=== PATIENT | male | born 1940 | race Caucasian/White ===

== ENCOUNTER 2017-06-06 07:34 | Observation (INO) ==
[2017-06-06] MEDS ORDERED: *HR* Heparin 10,000 UNIT/10 ML VIAL ONE (07:55)
[2017-06-06] MEDS ORDERED: 0.9 % Sodium Chloride 1,000 ML ONE (07:55)
[2017-06-06] MEDS ORDERED: Nitroglycerin 1,000 MCG/10 ML VIAL IV ONE (07:55)
[2017-06-06] MEDS ORDERED: 0.9 % Sodium Chloride 1,000 ML IVC SCH (08:00)
[2017-06-06] MEDS ORDERED: *HR* Midazolam HCl 2 MG/2 ML VIAL ONE (08:48)
[2017-06-06] MEDS ORDERED: *HR* FentaNYL (PF) 100 MCG/2 ML VIAL ONE (08:49)
--- NOTE | 2017-06-06 09:06 | History & Physical Report ---
Date of Encounter: 06/06/17 Time of Encounter: 08:45 24 Hour HP Update - Instructions Instructions: If the History and Physical is less than 30 days old and was completed prior to A.M. admission and or procedure and has NOT been updated on calendar day of procedure please complete this update prior to performing procedure. - Update Patient reports changes in Medical Condition: No Changes in examination, assessment, or condition: No Changes in Medication: No Preop tests/diagnostics Reviewed: Yes Surgery Remains Indicated: Yes Consent for Planned Operative Procedure(s) Verified: Yes - Pre-Operative Checklist Preoperative Checklist Indicated: No Prophylactic Antibiotic Ordered: No Home Medications Include Beta Chen: Yes Beta Chen Taken Today (Day of Surgery): Yes Beta Chen Taken Yesterday (Day Prior to Surgery): Yes Is VTE Prophylaxis Indicated?: NO
--- NOTE | 2017-06-06 09:06 | Pre-Sedation Evaluation ---
Pre-sedation evaluation - Pre-sedation checklist Date of procedure: 06/06/17 Procedure: [facility] Recent Vitals: Last Vital Signs Temp 97.8 F 06/06/17 08:08 Pulse 61 06/06/17 08:08 Resp 16 06/06/17 08:08 BP 127/74 06/06/17 08:08 Pulse Ox 97 06/06/17 08:08 H&P (including ROS) documented in medical record: Yes Previous reaction to sedatives/anesthetics: No Dietary Status: NPO after Midnight Airway Assessment: Patient can open mouth completely, TMJ function normal, Micrognathia (under-bite, receding chin) absent, Neck with adequate range of motion Dentition: No loose teeth or bridges Possible difficult airway: No ASA Classification *see protocol: CLASS II-Mild systemic disease Plan of Care: Pt appropriate candidate for procedure/moderate/conscious sedation , Risks/benefits of procedure/sedation discussed w/ patient/family
[2017-06-06] MEDS ORDERED: Nitroglycerin 0.4 MG TAB.SUBL SL PRN (10:10)
[2017-06-06] MEDS ORDERED: Acetaminophen 325 MG TABLET PO PRN (10:10)
[2017-06-06] MEDS ORDERED: *HR* Atropine Sulfate 1 MG/10 ML SYRINGE ONE (12:35)
--- NOTE | 2017-06-06 15:36 | Invasive Diagnostic Lab ---
Name: Link Mccarty Date of Study: 06/06/2017 Date: 1940 Ht: 165.1 cm /65.0 in Medical Record#: [id number] Age: 76 Wt: 93.2 kg / 205.47 lb Account/Order#: [id number] Gender: Male BSA: 2. Order #: [id number] Fluoro Dose: 566 mGy BMI: 34.19 Procedure Physician: Dominique Spain MD, [facility] Referring MD: Referring MD: Procedures Performed: LEFT HEART CATH Stent w/ PTCA Single Major Vessel Indications: Unstable Angina Impressions: Double vessel coronary artery disease. OPERATIONS INTERN of proximal RCA. The left ventricle is normal and has normal contractility EF 65% Patient had successful PTCA/Drug-Eluting Stent placement in the proximal LAD. Recommendations: Optimal medical therapy of patient's disease. Aggressive risk factor modification. Patient being referred for cardiac rehab. History/Risk Factors: CP SOB asthma emphysema ulcers stroke COPD Hypertension Dyslipidemia Previous PCI Procedure Access obtained in the Femoral artery by percutaneous puncture Patient had successful PTCA/Drug-Eluting Stent placement in the proximal LAD. Complications: None Contrast: Isovue 125ml Closure Device: Manual Compression Hemodynamics: Pressures Site Systolic/ A Wave Diastolic/ V Wave End Diastolic/ Mean HR LV 112 8 10 56 LV 105 6 10 56 AO 104 -2 72 54 LV Ventriculography Ejection Method: LV Gram Ejection Fraction: 65% Wall Motion: OZUNA Anterobasal Normal Anterolateral Normal Apical: Normal Inferoapical Normal Inferobasal Normal Coronary Dominance: Co-dominant Lesion Findings/Interventions * Left Main Coronary Artery The LMCA is angiographically free of disease. * Left Anterior Descending There is a 16 mm long, 99% stenosis in the Proximal LAD at distal edge of previous ostial/prox LAD stent. The lesion has a DUONG flow of 3 and has no thrombus present. An intervention was performed on the Proximal LAD with a final stenosis of 0%. There were no lesion complications. The final DUONG flow was 3. There is a 15% instent restenosis in the Ostial LAD. There is 15% instent restenosis in the mid LAD. * Circumflex There is a 30% stenosis in the Proximal Circumflex. There is a 30% stenosis in the Mid Circumflex. * Ramus There is a 15% stenosis in the Ramus. * Right Coronary Artery There is a 100% stenosis in the Proximal RCA- OPERATIONS INTERN. Distal RCA fills via L to R collaterals. Interventional Device(s) Vessel Segment Type Name Diameter (mm) Length (mm) Proximal LAD Balloon Emerge Monorail 2.25 12 Proximal LAD Drug Eluting Stent Synergy 3 16 Updated by Sherly Del Rio, RT (R) on 06/06/2017 10:03:58 AM Dominique Spain MD, FACC electronically signed on 06/06/2017 3:31:04 PM with status of Final
--- NOTE | 2017-06-06 16:10 | Electrocardiograph Report ---
[address] [address] Test Date: 2017-06-06 Pat Name: Link Mccarty Department: 106 Room: 2N12 Gender: M Poll Clerk: : 1940 Requested By: Dominique Spain Order Number: [id number] Reading MD: Dominique Spain Measurements Intervals [place] Rate: 58 P: 20 [place]: 159 QRS: -11 QRSD: 93 T: 28 QT: 416 QTc: 412 Interpretive Statements SINUS BRADYCARDIA Electronically Signed On 06-06-2017 16:08:38 EDT by Dominique Spain
[2017-06-07 04:11] LABS: Basophils # 0.1 K/mcL (0.0-0.2); Basophils % 0.4 %; Eosinophils # 0.5 K/mcL (0.0-0.6); Eosinophils % 4.1 %; Hematocrit 40.5 % (37.5-50.1); Hemoglobin 13.3 g/dL (12.9-16.9); Immature Granulocytes % 1.9 % (0-4); Lymphocytes % 16.6 %; Mean Corpuscular HGB Conc 32.8 g/dL (31.6-35.5); Mean Corpuscular Hemoglobin 31.4 pg (28.0-33.3); Mean Corpuscular Volume 95.7 fL (83.0-100.0); Mean Platelet Volume 10.4 fL (9.4-12.4); Monocytes # 0.6 K/mcL (0.0-1.3); Monocytes % 4.8 %; Neutrophils # 8.9 K/mcL (1.6-8.9); Platelet Count 327 K/mcL (140-400); Red Blood Count 4.23 M/mcL (4.19-5.50); Red Cell Distribution Width 12.2 % (11.5-14.5); Segmented Neutrophils % 72.2 %
[2017-06-07 04:23] LABS: BUN/Creatinine Ratio 10 (6-26); Blood Urea Nitrogen 12 mg/dL (8-26); Calcium 9.2 mg/dL (8.6-10.8); Carbon Dioxide 27 mEq/L (19-29); Chloride 101 mEq/L (98-109); Glucose 108 mg/dL (70-99); Osmolality,Calculated 282 (280-300); Sodium 136 mEq/L (136-145); eGFR For African Americans > 60 (> 60); eGFR For Non-African Americans 58 (> 60)
[2017-06-07 04:28] LABS: Potassium 3.6 mEq/L (3.5-4.5)
[2017-06-07 07:52] VITALS: BP 137/76
--- NOTE | 2017-06-07 08:49 | Discharge Summary ---
Date of Encounter: 06/07/17 Time of Encounter: 08:30 - Discharge Diagnosis (1) CAD (coronary artery disease) Priority: Primary Status: Chronic Comments: S/p [facility] with PTCA/DORA to prox LAD 99% lesion. Qualifiers: Coronary Disease-Associated Artery/Lesion type: [place] artery [place] vs. transplanted heart: [place] heart Associated angina: without angina Qualified Code(s): I25.10 - Atherosclerotic heart disease of [place] coronary artery without angina pectoris - Discharge Medications Prescriptions: Nitroglycerin 0.4 mg SL Q5MIN PRN #30 PRN Reason: Chest Pain Home Medications: Aspirin [Lo-Dose Aspirin EC] 81 mg PO DAILY 10/10/16 [History] Clopidogrel [Plavix] 75 mg PO DAILY 10/10/16 [History] Metoprolol [Lopressor] 25 mg PO BID 10/10/16 [History] Triamterene/HCTZ 37.5/25mg [Dyazide] 1 each PO DAILY 10/10/16 [History] Cholecalciferol (D-3) [Vitamin D] 2,000 unit PO DAILY 06/06/17 [History] Cyanocobalamin (Vitamin B-12) [Vitamin B12] 1,000 mcg PO DAILY 06/06/17 [History ] Fenofibrate 160 mg PO DAILY 06/06/17 [History] Ketoprofen 75 mg PO BID PRN 06/06/17 [History] Pantoprazole Sodium [Protonix] 40 mg PO DAILY 06/06/17 [History] Pravastatin Sodium [Pravachol] 40 mg PO DAILY 06/06/17 [History] Sildenafil Citrate [Viagra] 50 - 100 mg PO DAILY PRN 06/06/17 [History] Nitroglycerin 0.4 mg SL Q5MIN PRN #30 06/07/17 [Rx] Allergies/Adverse Reactions: Allergies No Known Allergies Allergy (Verified 10/10/16 07:35) Procedures/tests Complete & Pending: Procedures Performed prior 72 hours Category Date Time Status CL Cardiac Catheterization [CL] Routine [employer] Supervisor 06/06/17 07:47 Completed ECG 12 lead ECG [ECG] Routine Y 06/06/17 07:52 Completed ECG 12 lead ECG [ECG] Stat Y 06/06/17 10:09 Completed Date of admission: 06/06/17 12:11 Primary care physician: Hong Levy MD Consults: 06/06/17 10:11 Consult to Cardiac Rehabilitation-Phase1 [CONS] Routine Comment: Reason for Consult: CAD s/p PCI Call Completed: Yes Discharging clinician: Rajesh Christian Anticipated date of discharge: 06/07/17 - Patient Status Disposition: Home, Self-Care Condition: Good Functional capacity at discharge: independent ambulation Overall status at discharge: patient is progressing back to baseline - Discharge Instructions Follow Up With: Shea Wells CNP [Advanced Practice Nurse] - 06/12/17 11:00 am Pedro Ramirez MD [Partnered Physician] - 07/08/17 9:30 am Additional Instructions: RISK FACTORS: STOP SMOKING: If you smoke, STOP. Smoking or tobacco use significantly increases your risk of heart disease because nicotine causes the arteries to narrow or constrict. It also causes fats to stick to the artery. Your chances of having a heart attack are greatly increased if you continue to smoke. For more information, call the education line for smoking cessation 4-686-WIRQWUA EAT A LOW FAT/CHOLESTEROL/SODIUM DIET: This diet may help reduce your chances of having a heart attack. LIFTING: Avoid lifting anything more than 10 pounds for 5-7 days Prior to straining, laughing, sneezing and/or coughing, apply manual pressure directly over insertion site. ACTIVITY: You may walk or climb stairs as tolerated You can resume sexual activity as tolerated In general, you are encouraged to engage in a minimum of 30 minutes or more of moderate intensity physical activity, such as brisk walking, daily or at least 3 -4 times weekly BATHING Do not submerge the site into water (bath tub, hot tub, swimming pool) for 1 week. This can be a source for infection into the blood stream. You may shower after 24 hours SITE CARE: After 24 hours, you may remove the dressing and leave the site open to air. Keep the site clean and dry. Clean gently and pat dry. You can expect bruising and tenderness that gradually resolve within a week or two. Return to work as instructed per your physician Resume driving as instructed per physician Keep all scheduled follow up appointments Resume medications as instructed IMPORTANT: If prescribed a Platelet Aggregation Inhibitor such as, Plavix, Brilinta or Effient: Duration of therapy is minimum one year These medications are often used in combination with Aspirin in prevention of future heart attacks Never discontinue unless consult with your Limo Driver STROKE (CVA) Risk factors for a stroke are: Age, cigarette smoking, diabetes, excessive alcohol consumption, family history, high blood pressure, overweight, physical inactivity, prior stroke, heart attack, diagnosis of carotid artery stenosis or other artery disease. Warning signs: Sudden numbness or weakness of the face, arm or leg; especially on one side of the body, sudden confusion, trouble speaking or understanding, sudden trouble seeing in one or both eyes, sudden trouble walking, dizziness, loss of balance or coordination, sudden severe headache with no cause. Call 911 or go to the Emergency Room. CONGESTIVE HEART FAILURE: If you have been diagnosed with Congestive Heart Failure (CHF) and your symptoms return, make an appointment with your physician Weigh yourself daily. Notify your physician if you have a weight gain of two or more pounds in one day or five or more pounds in one week. If you experience any difficulty breathing, please call 911 BLEEDING: Although the risk of bleeding is minimal, it can happen. If you have any bleeding from the site, apply firm pressure above the puncture site for 10-15 minutes. If the bleeding does not stop, continue manual pressure and call 911 Contact your physician if: You develop a fever greater than 101 degrees Fahrenheit Your site becomes reddened or has any drainage You have an increase in pain or burning at the site or if a large knot forms at the site. If you experience chest pain, shortness of breath, dizziness, or extreme tiredness, stop the activity and rest. Please notify your physicians office if you experience any of these symptoms and they are not relieved by rest please call 911! - Diet and Activity Diet: advance to your usual diet, low fat, low cholesterol - Hospital Course Hospital course: Mr. Mccarty is a 76 year old male with a known history of CAD presented for outpatient catheterization with Dr. Dominique Spain June 06, 2017 for increased angina symptoms. Patient underwent PTCA/drug-eluting stent to proximal LAD 99% lesion. 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 Patient clinically stable overnight and prepping for discharge home today. - Time Spent with Patient Total time spent providing and/or coordinating discharge services: Less than 30 minutes Physical Examination Vital Signs, Last 4 Hours Temp Pulse Resp BP Pulse Ox 06/07/17 07:51 98.0 F 69 18 137/76 96 06/07/17 04:41 59 06/07/17 04:38 97.9 F 62 18 118/66 96 General: Conversant, No Apparent Distress HEENT: Atraumatic, Normocephaly, Mucus Membranes Moist Neck: No JVD, Normal carotid pulses Cardiac: Reg Rate and Rhythm, Normal S1 and S2, No Murmur Lungs: Normal Breath Sounds, No Wheeze, Rales, Rhonchi Neuro: Alert and responsive, No focal deficits noted Abdomen: Soft, Non-Tender Skin: No rashes noted on visualized skin, Other (Right groin site dry and intact , no hematoma, very mild ecchymosis, no bleeding, right dorsalis pedis and posterior tibial pulses 2+ palpable) Musculoskeletal: No Chest Wall Tenderness Extremities: No Clubbing, No Cyanosis, No Edema, Normal Pulses
[2017-06-07] MEDS ORDERED: Cholecalciferol (D-3) 1,000 UNIT TABLET PO SCH (09:00)
[2017-06-07] MEDS ORDERED: Fenofibrate 54 MG TABLET PO SCH (09:00)
[2017-06-07] MEDS ORDERED: Cyanocobalamin (B-12) 1,000 MCG TABLET PO SCH (09:00)
[2017-06-07] MEDS ORDERED: Aspirin Enteric Coated 81 MG Tablet PO SCH (09:00)
--- NOTE | 2017-06-08 18:05 | Electrocardiograph Report ---
[place] [address] Test Date: 2017-06-06 Pat Name: Link Mccarty Department: 110 Room: 2N12 Gender: M Welding Specialist: MRR : 1940 Requested By: Dominique Spain Order Number: [id number] Reading MD: Tacho Aguilera MD Measurements Intervals [place] Rate: 64 P: 36 [place]: 157 QRS: -19 QRSD: 90 T: 6 QT: 405 QTc: 414 Interpretive Statements SINUS RHYTHM BASELINE ARTIFACT Electronically Signed On 06-08-2017 18:03:59 EDT by Tacho Aguilera MD
--- NOTE | 2017-06-10 13:28 | Invasive Diagnostic Lab Proc ---
Name: Link Mccarty Date of Study: 06/06/2017 Date: 1940 Ht: 65.0in Medical Record#: [id number] Age: 76 Wt: 205.47lb Gender: Male BSA: 2. Order #: [id number] BMI: 34.19 Physicians Procedure Physician: Dominique Spain MD, FACC Referring MD: Referring MD: Staff Name Position Time In Blanca Sheldon RT (R) Pre-Op Nurse 08:04 AM Cristin Denis RN Pre-Op Nurse 08:04 AM Sherly Acevedo RT (R) Scrub 09:07 AM Loretta Finley RN Monitor 09:07 AM Adrian Neves RN Veterans Service Officer 09:08 AM Kemal Zelaya RN Veterans Service Officer 09:08 AM Kemal Zelaya RN Monitor 09:08 AM Indications Indication Unstable Angina Procedures Performed Procedure L HRT ARTERY/VENTRICLE ANGIO PRQ CARD DORA STENT W/ANGIO 1 VSL Pre-Procedure Checklist Informed consent is complete signed and on chart. H&P is on chart. ID band is on and ID verified with patient. Patient NPO for procedure The procedure was described for the patient and questions were answered. Blood Pressure: 127/74 ECG is on chart. Rhythm: NSR Plan of Care Patient will tolerate the procedure without complications. Adequate level of comfort will be maintained. Hemodynamics will remain stable Patient will recover from procedure without complications. Respiratory function will be maintained. Cardiac rhythm will remain stable. Patient temperature will be maintained. Patient and/or family have verbalized understanding of the procedure. Patient Education Chief Complaint/Reason for Test: Cardiac Cath Developmental Category: Geriatric (65+ years) Developmentally Appropriate for Age: Yes Learning Barriers: None Education Needs: Procedure Education Method: Verbal Information Taught: Cardiac Cath Educational Evaluation: Able to repeat information Intravenous Access Time IV Size Location DC'd Fluid/Drip Rate Units RN 08:03 AM Started with 20g 1 1/4" Lt Antecubital 0.9NaCl 100 ml/hr Allergies NO KNOWN DRUG ALLERGIES No Known Allergies Vital Signs Time BP (mmHg) HR (bpm) O2 Sat. RR (bpm) LOC 08:01 AM 127 / 74 61 97 % 16 5 = Fully awake and oriented or at pre-proc level 09:12 AM / % 4 = Oriented but drowsy 09:07 AM 153 / 84 59 97 % 12 09:12 AM 112 / 69 61 90 % 32 09:17 AM 127 / 75 54 97 % 13 09:22 AM 134 / 74 67 97 % 11 09:27 AM 133 / 68 56 98 % 16 09:32 AM 131 / 69 58 99 % 12 09:37 AM 140 / 71 56 98 % 11 09:42 AM 119 / 69 59 97 % 13 09:12 AM / % 09:27 AM / % 10:04 AM 128 / 72 59 97 % 16 5 = Fully awake and oriented or at pre-proc level 10:28 AM 126 / 76 57 96 % 17 5 = Fully awake and oriented or at pre-proc level 10:47 AM 115 / 64 58 97 % 13 5 = Fully awake and oriented or at pre-proc level 11:05 AM 115 / 95 55 96 % 13 5 = Fully awake and oriented or at pre-proc level 11:16 AM 115 / 90 55 96 % 16 5 = Fully awake and oriented or at pre-proc level 11:33 AM 122 / 73 53 96 % 16 5 = Fully awake and oriented or at pre-proc level 11:54 AM 126 / 78 55 97 % 16 5 = Fully awake and oriented or at pre-proc level 12:03 PM 115 / 64 51 97 % 16 5 = Fully awake and oriented or at pre-proc level Procedural Medications Time Medication Dose Units Method Given By 09:09 AM Oxygen 2 L/min nasal cannula Loretta Finley RN 09:09 AM Versed 2 mg Intravenous Adrian Neves RN 09:09 AM Fentanyl 50 mcg Intravenous Adrian Neves RN 09:16 AM Lidocaine 2% 20 ml Subcutaneous Dominique Spain MD, FACC 09:31 AM mg 09:31 AM Angiomax 0.75mg/kg bolus: 13.5 ml Intravenous Loretta Finley RN 09:32 AM Angiomax 1.75mg/kg/hr: 31.5 ml Intravenous Loretta Finley RN 09:40 AM Nitroglycerin 200 mcg Intracoronary Dominique Spain MD, FACC 09:44 AM Plavix 600 mg Orally Adrian Neves RN ASA Classification: CLASS II- Mild systemic disease (i.e. well-controlled diabetes, hypertension, asthma, cigarette smoking) Merlyn Score Preprocedure Postprocedure Activity 2- Moves 4 extremities sustained head lift Activity 2- Moves 4 extremities sustained head lift Circulation 2- SBP +/= 20 points of pre-anesthetic level Circulation 2- SBP +/= 20 points of pre-anesthetic level Consciousness 2- Awake and alert oriented x 3 Consciousness 2- Awake and alert oriented x 3 O2 Saturation 2- Able to maintain O2 satruation of 92% on room air O2 Saturation 2- Able to maintain O2 satruation of 92% on room air Respiratory 2- Able to deep breathe and cough well Respiratory 2- Able to deep breathe and cough well Total Score 10 Total Score 10 Contrast Agent: Isovue Diagnostic Contrast: 125 ml Total Contrast: 125 ml Fluoro Dose: 566 mGy Procedure Log Time Note Enter By 08:04 AM Evidence of mental, physical, or emotional abuse? No [email or web address] 08:05 AM Risk for fall? Yes, Medications (change in amt./frequency,newly prescribed,potential combinations) [email or web address] 08:05 AM Does patient have suicidal ideations? No [email or web address] 08:43 AM CathStat 09:06 AM Vitals capture started with the following parameters, Patient=Adult, Interval=5 min, Initial Ejsgtcov=283 mmHg, Deflation Rate=5 mmHg, Cuff placed on Left Arm 09:07 AM HR=59 bpm, UVAD=373/84 mmhg, SpO2=97.0 %, Resp=12 B/min 09:07 AM Pt arrived to [facility] 2 at 09:07 tsites 09:07 AM Sherly Acevedo RT (R) Position: Scrub Time in: 09:07 tsites 09:08 AM Loretta Finley RN Position: Monitor Time in: :07 tsites 09:08 AM Adrian Neves RN Position: Veterans Service Officer Time in: :08 tsites 09:08 AM Kemal Zelaya RN Position: Monitor Time in: 09:08 tsites 09:08 AM Patient charges- Angio tray pack, Navilyst 3mm J, Pulse Oximetry and ACIST tubing and transducer tsites 09:08 AM IV Supplies used: J loop Angio Cath. tsites 09:08 AM Case Delayed No tsites 09:09 AM Physician arrived 09:08 tsites 09:09 AM Meet and greet completed tsites 09:09 AM Sign in performed according to hospital policy. tsites 09:09 AM Procedure start 09:09 tsites 09:09 AM Hair removed from procedure site in holding area using clippers. Right wrist and right groin prepped with Chloraprep by Adrian Neves RN, safety strap applied then patient was draped. Skin intact. tsites 09:09 AM Time: 09:09 Oxygen on at 2 L/min per nasal cannula by Loretta Finley RN tsites 09: AM Time: 09:09 Versed 2 mg Intravenous Given by Adrian Neves RN [facility] 09: AM Time: 09:09 Fentanyl 50 mcg Intravenous Given by Adrian Neves RN [facility] 09:12 AM Time: 09:12 Patient comfortable and pain free: Yes tsites 09:12 AM Time: 09:12LOC: 4 = Oriented but drowsy [facility] 09:12 AM Clinical Presentation: Stable angina tsites 09:12 AM HR=61 bpm, ECFW=986/69 mmhg, SpO2=90 %, Resp=32 B/min 09:16 AM Time out performed according to hospital policy [facility] 09:16 AM Pressure channel 1 zeroed. 09:17 AM HR=54 bpm, FVZH=037/75 mmhg, SpO2=97.0 %, Resp=13 B/min 09:18 AM Time: 09:16 20 ml Lidocaine 2% to right groin Subcutaneous Given by Dominique Spain MD, [facility] 09:18 AM Access obtained by percutaneous puncture. 5Fr 10cm Terumo Strawberry sheath placed in Femoral artery. [id number] tsites 09:19 AM 5Fr FL 4 catheter inserted over the wire [facility] 09:19 AM 0.035 145cm Navilyst 3mmJ wire [id number] tsites 09:19 AM LCA angiography performed in multiple views. tsites 09:22 AM HR=67 bpm, BUNS=554/74 mmhg, SpO2=97 %, Resp=11 B/min 09:22 AM Catheter removed tsites :23 AM 5Fr FR 4 catheter inserted over the wire [facility] 09:23 AM RCA angiography performed in SLOVEN[place]. tsites 09:24 AM Catheter removed tsites 09:24 AM 5Fr Pigtail catheter inserted over the wire [facility] 09:25 AM Pressure channel 1 zeroed. 09:25 AM Recorded Pressure: LV, HR=56, Condition=Condition 1 (Left Ventricle) LV 112/8/10 09:25 AM Catheter selectively placed in left ventricle tsites 09:25 AM Recorded Pressure: LV, Ao, HR=55, Condition=Condition 1 (Left Ventricle) LV 105/6/10, (Aorta) Ao 104/-2/72 09:26 AM Bolus angiogram of Ventricle complete: 8 ml/sec for a total of 24 mls tsites 09:27 AM HR=56 bpm, CTZQ=568/68 mmhg, SpO2=98.0 %, Resp=16 B/min 09:27 AM Time: 09:12LOC: tsites 09:27 AM Time: 09:12 Patient comfortable and pain free: tsites 09:27 AM Catheter removed tsites 09:28 AM PCI Status Elective tsites 09:28 AM PCI Indication: PCI for high risk Non-STEMI or unstable angina tsites 09:28 AM PCI lesion in Proximal LAD. tsites 09:28 AM Sheath exchanged for a 6 Fr 11 cm Cordis Estefany sheath [id number] tsites 09:29 AM 6Fr XB LAD 3.5 Cordis guide catheter was used to cannulate the PCI vessel successfully. reused? No tsites 09:29 AM .014 Prowater 180cm guide wire across target lesion- successful. reused? No tsites 09:29 AM Inflation device was opened. tsites 09:30 AM 2.25 mm x 12 mm Emerge Monorail balloon across target lesion- successful. reused? No tsites 09:31 AM Time: 09:31 mg Given by Schultz pump tsites 09:32 AM HR=58 bpm, AJJW=959/69 mmhg, SpO2=99 %, Resp=12 B/min 09:32 AM Time: 09:31 Angiomax 0.75mg/kg bolus: 13.5 ml Intravenous Given by Loretta Finley RN Schultz pump tsites 09:33 AM Time: 09:32 Angiomax 1.75mg/kg/hr: 31.5 ml Intravenous Given by Loretta Finley RN Schultz pump tsites 09:36 AM Balloon inflated @ 14 salma for 20 seconds tsites 09:36 AM Balloon catheter removed intact. tsites 09:37 AM HR=56 bpm, RRQV=607/71 mmhg, SpO2=98 %, Resp=11 B/min 09:37 AM 3.0mm x 16mm Synergy drug-eluting stent across target lesion- successful Lot #[id number] tsites 09:39 AM Stent deployed @ 15 salma for 30 seconds tsites 09:40 AM Stent delivery system removed intact. tsites 09:40 AM Time: 09:40 Nitroglycerin 200 mcg Intracoronary Given by Dominique Spain MD, FACC tsites 09:41 AM Guide wire removed intact. tsites 09:42 AM Guide catheter removed intact. tsites 09:42 AM HR=59 bpm, GHDC=708/69 mmhg, SpO2=97 %, Resp=13 B/min 09:42 AM Time: 09:27 Patient comfortable and pain free: tsites 09:42 AM Time: 09:27LOC: tsites 09:43 AM Bolus angiogram of right Femoral complete: 2 ml/sec for a total of 4 mls tsites 09:44 AM Time: 09:44 Plavix 600 mg Orally Given by Adrian Neves RN tsites 09:45 AM Procedure completed at 09:45 tsites 09:46 AM Sign out completed: Radiation Dose 566 mGy Fluoro Time: 6.3 Isovue 370 - 500ml contrast 125 ml given by Dominique Spain MD, [facility]. Complications: NoneCardiac Rehab Consult needed: YesConfirmed administered medications: Yes tsites 09:46 AM Isovue 370 - 500ml,1 Bottle(s) used. tsites 09:47 AM Sheath left in place to be pulled on floor/holding areaV+Pad tsites 09:47 AM Post ECG NSR tsites 09:48 AM Post Blood Pressure 119/69 tsites 09:48 AM 09:48 Post Pulses Bilateral DP & PT 1+ tsites 09:48 AM Information taught Cardiac Cath and PCI tsites 09:48 AM Education needs Procedure, Plan of Care, and Responsibilities of Patient in Care tsites 09:49 AM Learning barriers :None tsites 09:49 AM Education Methods Verbal tsites 09:49 AM Education evaluation Able to repeat information tsites 09:49 AM Site status No bleeding/hematoma - Rt Groin as reported by Sherly Acevedo RT (R) at 09:49 tsites 09:49 AM Opsite applied tsites 09:50 AM Report given to blanca AYON Pt taken to Holding room Room #1. 09:50 tsites 09:50 AM Plavix, Effient or Brilinta given Yes tsites 09:50 AM Delay to floor Bed availability tsites 09:50 AM Patient out of room: 09:50 tsites 09:51 AM Family placed in consult room. tsites 09:52 AM Coronary Dominance: Co-dominant tsites 09:52 AM Lesion found in Proximal RCA. Pre Stenosis: 100 Pre DUONG Flow: tsites 09:52 AM Lesion found in Proximal LAD. Pre Stenosis: 99 Pre DUONG Flow: tsites 09:53 AM Lesion found in Proximal LAD. Pre Stenosis: 15 Pre DUONG Flow: tsites 09:53 AM Lesion found in Proximal LAD. Pre Stenosis: 15 Pre DUONG Flow: tsites 09:53 AM Lesion found in Proximal Circumflex. Pre Stenosis: 30 Pre DUONG Flow: tsites 09:54 AM Lesion found in Mid Circumflex. Pre Stenosis: 30 Pre DUONG Flow: tsites 09:54 AM Lesion found in Ramus. Pre Stenosis: 15 Pre DUONG Flow: tsites 09:54 AM Proximal Left Anterior Descending Coronary Artery with 99% stenosis. If graft is supplying this territory, 0 % stenosis. tsites 09:54 AM Circumflex, Obtuse Marginal, Left Posterior Descending, and Left Posterolateral Coronary Arteries with 30 % stenosis. If graft is supplying this area, 0 % stenosis tsites 09:54 AM Right Coronary, Right Posterior Descending Arteries with Right Posterolateral and Acute Marginal branches with 100 % stenosis. If graft is supplying this area, 0 % stenosis tsites 09:54 AM Ramus with 15% stenosis. If graft is supplying this area, 0 % stenosis tsites 10:03 AM received patient to holding area. monitors applied. [email or web address] Complications Complication None Hemodynamics Pressures Site Systolic/A Wave Diastolic/V Wave Mean LV 112 8 10 LV 105 6 10 AO 104 -2 72 Post Procedure Information Blood Pressure: 119/69 mmHg Rhythm: NSR Post procedural instructions were given Closure Device Time Device Success/Fail 06/06/2017 9:51:00 AM Manual Compression Site Checks Time Location Status Staff Sheath In? Note 09:49 AM Rt Groin No bleeding/hematoma Sherly Acevedo RT (R) 10:04 AM Rt Groin No bleeding/ No Hematoma India Hutchison RN Yes 10:27 AM Rt Groin No bleeding/ No Hematoma Blanca Sheldon RT (R) Yes 10:47 AM Rt Groin No bleeding/ No Hematoma Blanca Sheldon RT (R) Yes 11:04 AM Rt Groin No bleeding/ No Hematoma Pilar Sheldonlee RT (R) Yes 11:16 AM Rt Groin No bleeding/ No Hematoma Cristin Denis RN Yes 11:32 AM Rt Groin No bleeding/ No Hematoma Kemal Zelaya RN 11:53 AM Rt Groin No bleeding/ No Hematoma Kemal Zelaya RN 12:03 PM Rt Groin No bleeding/ No Hematoma Kemal Zelaya RN Pulses Time Site Pre-Procedure Post-Procedure Note 06/06/2017 8:01:00 AM Bilateral DP 2+ 06/06/2017 8:01:00 AM Bilateral PT 1+ 06/06/2017 8:01:00 AM Bilateral radial 2+ 9:48:00 AM Bilateral DP & PT 106/06/2017 10:04:00 AM Bilateral DP & PT 106/06/2017 10:28:00 AM Bilateral DP & PT 1+ 06/06/2017 10:47:00 AM Bilateral DP & PT 106/06/2017 11:04:00 AM Bilateral DP & PT 1+ 06/06/2017 11:16:00 AM Bilateral DP & PT 1+ 06/06/2017 11:33:00 AM Bilateral DP & PT 1+ 06/06/2017 11:54:00 AM Bilateral DP & PT 106/06/2017 12:03:00 PM Bilateral DP & PT 1+ Updated by Ronan Levy RN on 06/10/2017 1:17:59 PM Cristin Denis RN electronically signed on 06/10/2017 1:20:47 PM with status of Final
== END 2017-06-07 10:43 | disposition home or self-care (01) ==
LOC: 2NNU 07:34 → INVDIALAB 07:34
PROVIDERS: ADMIT Internal Medicine Interventional Cardiology; ATTEND Internal Medicine Interventional Cardiology

== ENCOUNTER 2018-02-07 10:58 | Observation (INO) ==
[2018-02-07] MEDS: 0.9 % Sodium Chloride 1,000 ML IVC SCH ×2 (11:52→20:57)
--- NOTE | 2018-02-07 12:02 | Emergency Department Note ---
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 Patient says that the symptoms are only present when he moves. Patient notices them worse when he turns his head [id number] quickly or goes from lying to sitting or sitting to standing. Patient also notices when she leans forward that the symptoms are worse. Denies chest pain shortness breath headache vision changes patient denies any new symptoms. He does have a history of vertigo. Onset (ago): hour(s) Radiation: non-radiation Pain Scale: 0 Consistency: intermittent Improves with: rest Worsens with: movement Treatments Prior to Arrival: none - Related Data Home Medications Medication Instructions Recorded Confirmed Aspirin [Lo-Dose Aspirin EC] 81 mg PO DAILY 10/10/16 11/21/17 Clopidogrel [Plavix] 75 mg PO DAILY 10/10/16 11/21/17 Metoprolol [Lopressor] 25 mg PO BID 10/10/16 11/21/17 Triamterene/HCTZ 37.5/25mg 1 each PO DAILY 10/10/16 11/21/17 [Dyazide] Cholecalciferol (D-3) [Vitamin D] 2,000 unit PO DAILY 06/06/17 11/21/17 Cyanocobalamin (Vitamin B-12) 1,000 mcg PO DAILY 06/06/17 11/21/17 [Vitamin B12] Fenofibrate 160 mg PO DAILY 06/06/17 11/21/17 Pantoprazole Sodium [Protonix] 40 mg PO DAILY 06/06/17 11/21/17 Pravastatin Sodium [Pravachol] 40 mg PO DAILY 06/06/17 11/21/17 Previous Rx's Medication Instructions Recorded Nitroglycerin 0.4 mg SL Q5MIN PRN #30 06/07/17 Famotidine [Pepcid] 20 mg PO BID #30 tablet 11/21/17 Allergies Allergy/AdvReac Type Severity Reaction Status Date / Time No Known Allergies Allergy Verified 10/10/16 07:35 All systems ED: reviewed and negative except as stated. Review of Systems: As Per HPI Constitutional: Denies: fever, chills Cardiovascular: Denies: chest pain, palpitations, dyspnea on exertion, orthopnea Respiratory: Denies: cough, dyspnea, wheezes, hemoptysis Gastrointestinal: Denies: nausea, vomiting, diarrhea Genitourinary: Denies: urgency, dysuria, frequency Musculoskeletal: Denies: back pain, neck pain Neurological: Reports: vertigo. Denies: headache Past Medical History - Past Medical History Attestation: Yes The following information was validated with the patient. Source: patient Medical history: Reports: arthritis, asthma, COPD, coronary artery disease, CVA , GERD, hyperlipidemia, hypertension Surgical history: Reports: angioplasty/stent, orthopedic, other Psychiatric history: Reports: no psych history - Social History Smoking Status: Former smoker Smokeless Tobacco Status: No Alcohol use: Reports: none Drug use: Reports: none Physical Exam - General Limitations: no limitations General appearance: alert - ENT ENT exam: normal exam, normal oropharynx, mucous membranes moist - Neck Neck exam: Present: normal inspection, full ROM, trachea midline. Absent: tenderness - Chest Chest inspection: Present: normal inspection, symmetric chest wall rise - Respiratory Respiratory exam: Present: normal lung sounds bilaterally - Cardiovascular Cardiovascular exam: Present: regular rate, normal rhythm, normal heart sounds - Abdominal Exam Abdominal exam: Present: soft, Non-Tender. Absent: tenderness, distention, guarding, rebound, rigidity - Extremities Exam Extremities exam: Present: normal inspection, full ROM, normal capillary refill. Absent: tenderness, pedal edema - Back Exam Back exam: Present: normal inspection, full ROM - Neurological Exam Neurological exam: Present: alert, oriented X3, CN II-XII intact, normal gait. Absent: motor sensory deficit - Psychiatric Psychiatric exam: Present: normal affect, normal mood - Skin Skin exam: Present: warm, dry, intact, normal color Course Course Narrative: Patient seen and examined the time of arrival. See history of present illness. 77-year-old male presents to the emergency room with approximately 18 hours with of intermittent dizziness. Patient noticed the symptoms yesterday afternoon. He does have a remote history of dizziness and vertigo. He has not had symptoms of this in quite a long time. He denies any recent illnesses trauma injury infections. Currently denying chest pain shortness of breath headache vision changes nausea vomiting or diarrhea. His only complaint is positional related dizziness and vertigo. Patient's only has symptoms when he leans forward or rotates his head quickly. He has no visible signs of ataxia. His neurologic evaluation is completely benign. He has no visible cerebellar function deficits or issues at this time. Because of the patient's symptoms is approximately 18 hours since the onset of the presentation. CT imaging of the head with contrast looking at angiography of the head and neck will be completed along with plain film of the head. Patient does not have any visible signs of neurologic deficit facial asymmetry. Cranial nerves III through XII are grossly intact. Aspirin will be given once CT scan is resulted. Patient is denying chest pains or chest x-ray and EKG were resulted for screening evaluation on a CBC and chemistry. Lungs are clear heart is regular abdomen is soft. Patient was all 470s with purpose does not have any acute deficits or symptoms of this time. Meclizine IV fluids were given at this point. Disposition pending the full workup and treatment course. - Reevaluation(s) Reevaluation #1: Patient is still having intermittent symptoms worse when he turns his head or turns his body quickly. CT angiography of the head does not show any occlusive presentation this time. There is an old infarct as well as areas of stenosis of the vertebral artery origin bilaterally as well as the carotid artery origin bilaterally. No vascular significant stenosis noted at this time. Consultation placed out instrumentation instructor neurologist further recommendations and thoughts on the patient's presentation this point. Time: 14:08 Reevaluation #2: pt discussed with Dr. Granda the neurologist instrumentation instructor. we reviewed the case and presentation. Patient will be discussed with the hospitalist at this time for admission. I reviewed this with the neurologist and they felt that because of the inconsistent symptoms with no lateralizing nystagmus reproducible dizziness with extraocular motion that the patient may need further imaging modalities including MRI and carotid Dopplers. Patient also had vascular stenosis on the vertebral arteries and carotid arteries. [facility] this time for admission Time: 14:29 Reevaluation #3: Patient accepted by Dr. Koroma. Review the presentation symptoms no other recommendations this time. Patient was provided with aspirin. Discussion was had with the patient and family at bedside. They are comfortable this plan. Consultation placed to neurology at this point Time: 14:32 Vital Signs Temperature 97.4 F L 02/07/18 11:05 Pulse Rate 67 02/07/18 11:05 Respiratory Rate 18 02/07/18 11:05 Blood Pressure 123/75 02/07/18 11:05 O2 Sat by Pulse Oximetry 96 02/07/18 11:05 Temperature 97.4 F L 02/07/18 11:05 Pulse Rate 67 02/07/18 11:33 Respiratory Rate 15 02/07/18 11:33 Blood Pressure 130/66 02/07/18 11:33 O2 Sat by Pulse Oximetry 96 02/07/18 11:33 Oxygen Delivery Oxygen Delivery Room Air Medical Decision Making - MDM Narrative Medical decision making narrative: Dizziness, vertigo - Medical Records Medical records reviewed: Yes I reviewed the patient's medical records. - Lab Data Lab results reviewed: Yes I reviewed the patient's lab results. - Radiology Data Radiology results reviewed: Yes I reviewed the patient's radiology results. CT angiography of the head neck does show some bilateral stenosis of the vertebral as well as carotid arteries. No visible signs of acute stroke at this point - EKG Data EKG #1 EKG attestation: Yes I reviewed and interpreted this EKG. EKG results narrative: EKG shows sinus rhythm. No acute signs of ST segment elevation or abnormality. There are T-wave inversions noted in lead 3 the do appear to be old compared to an EKG in 06/06/17. The intervals appear to be stable. WI interval 153. QRS duration 92. QTC of 410. [place] appears to be slightly leftward deviated. Left ventricular hypertrophy is noted by greater than 11 mm of elevation in aVL. No acute changes at this time. No acute signs of WPW or Brugada syndrome.
[2018-02-07 12:10] LABS: Hematocrit 44.8 % (37.5-50.1); Hemoglobin 14.6 g/dL (12.9-16.9); Mean Corpuscular HGB Conc 32.6 g/dL (31.6-35.5); Mean Corpuscular Hemoglobin 31.1 pg (28.0-33.3); Mean Corpuscular Volume 95.5 fL (83.0-100.0); Mean Platelet Volume 10.7 fL (9.4-12.4); Platelet Count 242 K/mcL (140-400); Red Blood Count 4.69 M/mcL (4.19-5.50); Red Cell Distribution Width 13.5 % (11.5-14.5)
[2018-02-07 12:18] LABS: INR 1.1; Prothrombin Time 11.3 Seconds (9.4-12.1)
[2018-02-07 12:23] LABS: BUN/Creatinine Ratio 11 (6-26); Blood Urea Nitrogen 15 mg/dL (8-23); Carbon Dioxide 27 mEq/L (23-29); Chloride 96 mEq/L (98-107); Glucose 128 mg/dL (70-105); Osmolality,Calculated 276 (280-300); Potassium 3.3 mEq/L (3.5-5.1); Sodium 132 mEq/L (136-145); Troponin I < 0.03 ng/mL (< 0.04); eGFR For African Americans > 60 (> 60); eGFR For Non-African Americans 52 (> 60)
[2018-02-07 12:41] LABS: Lymphocytes # 1.5 K/mcL (0.6-4.6); Monocytes # 0.1 K/mcL (0.0-1.3); Neutrophils # 4.7 K/mcL (1.6-8.9); Platelet Estimate Normal (Normal); Reactive Lymphocytes Present (Not Present)
[2018-02-07] MEDS ORDERED: Aspirin 81 MG TAB.CHEW PO STA (14:25)
[2018-02-07] MEDS ORDERED: Naloxone 0.4 MG/ML INJ IVP PRN (15:36)
[2018-02-07] MEDS ORDERED: Nitroglycerin 0.4 MG TAB.SUBL SL PRN (15:44)
--- NOTE | 2018-02-07 16:25 | Internal Med History&Physical ---
<Jos Esteves - Last Filed: 02/07/18 17:07> Date of Encounter: 02/07/18 Time of Encounter: 15:00 Assessment and Plan (1) Dizziness Current visit: Yes Status: Acute Acute dizziness and weakness for the past two weeks. Pt. reports dizziness worsens w/laying down. SOB accompanies. Hx of vertigo. 2-week hx of URI sx and cough. Ordered MRI of head/brain shows very minimal small vessel ischemic change bilaterally, left cerebellar old infarct, and no acute abnormality otherwise. CTA of the neck shows moderate to severe narrowing of both vertebral artery origins. No evidence of carotid artery flow-limiting stenosis in the neck. Mild to moderate narrowing involves both intracranial internal carotid arteries bilaterally. No proximal cerebral artery occlusion. Respiratory Infection Panel ordered. Will continue pts. PO levaquin that his PCP started him on. TSH/Free T4 ordered. Orthostatic BPs and VS. PT/OT consults ordered. Neurology consult ordered in ED and I appreciate the consult. Falls/safety precautions, up with assist, bed rest w/bedside commode w/assist only. Pt. discussed w/Dr. Koroma who agrees w/plan of care. Pt. is moderate risk for further morbidity based on current sx and hx, risk factors. Observation. (2) Upper respiratory symptom Current visit: Yes Status: Acute Acute UR sx for past two weeks. Cough and SOB. Pt. also has hx of COPD. PCP placed pt. on PO levaquin. Will continue. Respiratory Infection Panel ordered. Mucinex for cough. DuoNeb Q6HR scheduled. Prednisone PO 10 mg BIDWM. Supplemental O2 w/titration and SpO2 monitoring PRN. (3) Vertebral artery stenosis Current visit: Yes Status: Chronic Vertebral artery stenosis. CTA of the head shows no acute intracranial hemorrhage or mass effect. Chronic left cerebellar infarct unchanged. Mild diffuse volume loss progressed. Moderate to severe narrowing of both vertebral artery origins. No evidence of carotid artery flow-limiting stenosis in the neck. Mild to moderate narrowing involves both intracranial internal carotid arteries bilaterally. No proximal cerebral artery occlusion. Continue aspirin, statin, HTN medications. Qualifiers: Laterality: bilateral Qualified Code(s): I65.03 - Occlusion and stenosis of bilateral vertebral arteries (4) COPD (chronic obstructive pulmonary disease) Current visit: Yes Status: Chronic Hx of chronic COPD. Currently stable. Pt. reports cough and chest congestion for past two weeks. Respiratory Infection Panel ordered. DuoNebs Q6HR PRN. Mucinex for cough. Continue pts. PO levaquin he was placed on by PCP. Supplemental O2 w/titration and SpO2 monitoring PRN. Prednisone 10 mg BIDWM. Qualifiers: COPD type: emphysema Qualified Code(s): J43.9 - Emphysema, unspecified (5) TIA (transient ischemic attack) Current visit: Yes Status: Chronic Hx of TIAs. Pt. and family report that dx was made 6-7 years ago. 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 Qualifiers: Transient cerebral ischemia type: unspecified Qualified Code(s): G45.9 - Transient cerebral ischemic attack, unspecified (6) GERD (gastroesophageal reflux disease) Current visit: Yes Status: Chronic Hx of chronic GERD. IVP Zofran 4 mg Q6HR PRN for N/V. Continue pts. PO Protonix. Qualifiers: Esophagitis presence: esophagitis presence not specified Qualified Code(s) : K21.9 - Gastro-esophageal reflux disease without esophagitis (7) HLD (hyperlipidemia) Current visit: Yes Status: Chronic Hx of chronic HLD. Lipid panel in a.m. labs. Continue pts. Pravastatin. Qualifiers: Hyperlipidemia type: pure hypercholesterolemia Qualified Code(s): E78.00 - Pure hypercholesterolemia, unspecified; E78.0 - Pure hypercholesterolemia (8) HTN (hypertension) Current visit: Yes Status: Chronic Hx of chronic HTN. Monitor pt. and VS. Continue pts. Lopressor and Dyazide. Qualifiers: Hypertension type: essential hypertension Qualified Code(s): I10 - Essential (primary) hypertension (9) CAD (coronary artery disease) Current visit: Yes Status: Chronic Hx of chronic CAD w/angioplasty/stent placement x3 and bilateral vertebral artery stenosis. Continuous cardiac telemetry. Continue pts. Low-dose aspirin, Plavix, Lopressor, pravastatin, and Dyazide. Qualifiers: Coronary Disease-Associated Artery/Lesion type: [place] artery [place] vs. transplanted heart: [place] heart Associated angina: without angina Qualified Code(s): I25.10 - Atherosclerotic heart disease of [place] coronary artery without angina pectoris (10) DVT prophylaxis Current visit: Yes Status: Acute Bilateral SCDs on LEs for DVT prophylaxis d/t recent epistaxis requiring cauterization. Monitor pt. for signs of bleeding. Internal Medicine - H&P: HPI Chief complaint: Dizziness/Weakness Admitted From: Emergency Dept Plans for Post Hospital Care: Home History of present illness: Mr. Mccarty is a 77 year old male w/PMH of arthritis, asthma, COPD, CAD, TIAs (6- 7 years ago), GERD, HLD, and HTN presents from the ED with chief complaint of dizziness and weakness for the past 2 weeks that has become progressively worse for the past 18 hours. Patient states he becomes extremely dizzy with positional changes or changes in head movement. Sx also worsen w/laying down. Reports recent cauterization of nose for epistaxis 2 weeks ago. Hx of vertigo. Also reports URI sx for past two weeks w/cough, chest congestion, and SOB. Denies recent nausea, vomiting, fever, chills, chest pain, palpitations, changes in vision, headache, abdominal pain, diarrhea, constipation, numbness, tingling, pre-syncope, or syncope. Past Med Surg Social Fam HX - Past Medical History Source: patient, old records reviewed, obtained from family Medical history: arthritis, asthma, COPD, coronary artery disease, GERD, hyperlipidemia, hypertension, TIA (6-7 years ago) Psychiatric history: no psych history - Past Surgical History Surgical History: angioplasty/stent (x3), orthopedic, other (eft great toe, left knee, lower back, and left hip 2) - Social History Smoking Status: Former smoker Packs per day: 1 PPD - Reports quitting 45 years ago Smokeless Tobacco Status: No Alcohol use: none Drug use: none Current living situation: Home, With Family Activity Level: Independent ambulation Recent Out of Country Travel Within the Last 8 Weeks: No Exposure or Possible Exposure to Illness During Travel: No - Family History Father Race: Family Member Ethnicity: Non- Living Status: Age at : 92 Cause of : Leukemia Hx Family Cancer: Yes (Leukemia) Mother Race: Family Member Ethnicity: Non- Living Status: Age at : 89 Cause of : Cancer Hx Family Cancer: Yes Hx Family Neuromuscular Disorders: Yes (Parkinson's disease) Hx Family Neurologic Disorders: Yes (TIAs) Brother Race: Family Member Ethnicity: Non- Living Status: Still Living Hx Family Cardiac Disorders: Yes (HD) Hx Family GI Disorders: Yes (GERD) Sister Race: Family Member Ethnicity: Non- Living Status: Age at : 69 Cause of : Choked on food Hx Family Cardiac Disorders: Yes (CVA) Hx Family Respiratory Disorders: Yes (Emphysema) Hx Family Cancer: Yes (Colon) Hx Family Neurologic Disorders: Yes (CVA) Internal Medicine - H&P: Meds Aspirin [Lo-Dose Aspirin EC] 81 mg PO DAILY 10/10/16 [History] Clopidogrel [Plavix] 75 mg PO DAILY 10/10/16 [History] Metoprolol [Lopressor] 25 mg PO BID 10/10/16 [History] Triamterene/HCTZ 37.5/25mg [Dyazide] 1 each PO DAILY 10/10/16 [History] Cholecalciferol (D-3) [Vitamin D] 2,000 unit PO DAILY 06/06/17 [History] Cyanocobalamin (Vitamin B-12) [Vitamin B12] 1,000 mcg PO DAILY 06/06/17 [History ] Fenofibrate 160 mg PO DAILY 06/06/17 [History] Pantoprazole Sodium [Protonix] 40 mg PO DAILY 06/06/17 [History] Pravastatin Sodium [Pravachol] 40 mg PO DAILY 06/06/17 [History] Nitroglycerin 0.4 mg SL Q5MIN PRN #30 06/07/17 [Rx] Fluticasone Propionate Nasal [Flonase] 1 - 2 spr NS DAILY 02/07/18 [History] levoFLOXacin [Levofloxacin] 500 mg PO DAILY 02/07/18 [History] 3 Allergy/AdvReac Type Severity Reaction Status Date / Time aspirin AdvReac See Verified 02/07/18 15:03 Comments All Systems PM: A 10-system review of systems was performed and is negative for pertinent findings except as documented above in the HPI. - Constitutional Constitutional: as per HPI, fatigue, weakness, no chills, no fever(s), no night sweats - EENT Eyes: no change in vision, no discharge, no pain, no photophobia Ears: no ear discharge, no ear pain, no tinnitus Nose, mouth and throat: no dysphagia, no nasal discharge, no neck pain, no sore throat - Breasts Breasts: as per HPI - Cardiovascular Cardiovascular ROS IM: as per HPI, dyspnea, dyspnea on exertion, lightheadedness , no chest pain, no diaphoresis, no palpitations, no syncope - Respiratory Respiratory: as per HPI, cough, dyspnea on exertion, chest congestion, no dyspnea, no wheezing, no excessive phlegm production - Gastrointestinal Gastrointestinal: no abdominal pain, no diarrhea, no hematemesis, no hematochezia, no melena, no nausea, no vomiting - Genitourinary Genitourinary ROS male: as per HPI - Musculoskeletal Musculoskeletal ROS IM: no numbness, no tingling - Integumentary Integumentary IM: no rash, no unusual bruising - Neurological Neurological ROS: as per HPI, disequilibrium, dizziness, vertigo, weakness, no confusion, no convulsions, no focal weakness, no numbness, no tingling, no tremor(s) - Psychiatric Psychiatric: as per HPI - Endocrine Endocrine IM: as per HPI - Hematologic/Lymphatic Hematologic/Lymphatic: no easy bruising - Allergic/Immunologic Allergic/Immunologic: as per HPI - Constitutional Vitals: Temp Pulse Resp BP Pulse Ox 97.4 F L 68 15 128/89 96 02/07/18 11:05 02/07/18 14:29 02/07/18 16:11 02/07/18 16:11 02/07/18 14:29 General appearance: Present: cooperative, mild distress (Respiratory/cough), A& O X 3, pleasant, obese, answers questions appropriately - Head Head exam: Present: atraumatic, normocephalic - Eye Eye exam: Present: PERRL, conjuntiva pink, sclera anicteric Pupils: Present: PERRL - ENT ENT exam: Present: normal exam - Neck Neck exam general surgery: Present: normal inspection, supple, trachea midline. Absent: lymphadenopathy - Respiratory Respiratory exam: Present: decreased breath sounds, wheezes. Absent: accessory muscle use, rales, rhonchi - Cardiovascular Cardiovascular exam: Present: RRR, +S1, +S2. Absent: diastolic murmur, gallop, rubs, systolic murmur - GI/Abdominal GI/Abdominal exam: Present: normal bowel sounds, soft, no peritoneal signs. Absent: distended, tenderness - Rectal Rectal exam: Present: deferred - Additional comments: exam deferred. - Extremities Exam Extremities exam: Present: warm, radial pulses palpable and symmetrical. Absent : calf tenderness, cyanotic, pedal edema - Back Exam Back exam: Present: normal inspection - Neurological Exam Neurological exam: Present: CN II-XII intact, oriented X3, no focal deficits. Absent: pronater drift, facial droop, speech deficit - Psychiatric Psychiatric exam: Present: normal affect, normal mood - Skin Skin exam: Present: dry, intact Internal Med - H&P Results - Labs CBC & Chem 7: 02/07/18 11:14 02/07/18 11:14 - EKG Data EKG shows normal: sinus rhythm - EKG Data Prior EKG available for review: yes EKG comments: 02/07/18 16:33 EKG dated 06/06/17 shows sinus rhythm with baseline artifact. EKG dated 02/07/18 shows sinus rhythm with moderate voltage criteria for LVH. Consider normal variant. - Impressions ITS Impressions Brain MRI 02/07/18 15:03 IMPRESSION: Very minimal small-vessel ischemic change bilaterally Left cerebellar old infarct No acute abnormality otherwise D/ / Calvin Walter / Calvin Walter Interpreting Provider: Calvin Walter - Diagnostic Studies Chest x-ray Additional comments: Impressions Chest X-Ray 02/07/18 11:14 IMPRESSION: No acute abnormality. D/ / Destin Knox MD / Destin Knox MD Interpreting Provider: Destin Knox MD MRI - head Additional comments: Impressions Brain MRI 02/07/18 15:03 IMPRESSION: Very minimal small-vessel ischemic change bilaterally Left cerebellar old infarct No acute abnormality otherwise D/ / Calvin Walter / Calvin Walter Interpreting Provider: Calvin Walter Other Images Additional comments: Impressions Angiography CT 02/07/18 11:53 IMPRESSION: No acute intracranial hemorrhage or mass effect. Chronic left cerebellar infarct unchanged. Mild diffuse volume loss progressed. Moderate- severe narrowing of both vertebral artery origins. No evidence of carotid artery flow-limiting stenosis in the neck. Mild-moderate narrowing involves both intracranial internal carotid arteries bilaterally. No proximal cerebral artery occlusion. D/ / Ward Zurita MD / Ward Zurita MD Interpreting Provider: Ward Zurita MD Neck CTA 02/07/18 11:53 IMPRESSION: No acute intracranial hemorrhage or mass effect. Chronic left cerebellar infarct unchanged. Mild diffuse volume loss progressed. Moderate- severe narrowing of both vertebral artery origins. No evidence of carotid artery flow-limiting stenosis in the neck. Mild-moderate narrowing involves both intracranial internal carotid arteries bilaterally. No proximal cerebral artery occlusion. D/ / Ward Zurita MD / Ward Zurita MD Interpreting Provider: Ward Zurita MD <Carter Koroma - Last Filed: 02/07/18 18:13> Date of Encounter: 02/07/18 Internal Medicine - H&P: HPI History of present illness: Mr. Mccarty is a 77 year old male All Systems PM: A 10-system review of systems was performed and is negative for pertinent findings except as documented above in the HPI. - Constitutional Vitals: Temp Pulse Resp BP Pulse Ox 98.2 F 67 18 146/76 98 02/07/18 17:04 02/07/18 17:04 02/07/18 17:04 02/07/18 17:04 02/07/18 17:04 Internal Med - H&P Results - Labs CBC & Chem 7: 02/07/18 11:14 02/07/18 11:14 Labs: Cardiac Enzymes 02/07/18 Range/Units 16:37 Troponin I < 0.03 (< 0.04) ng/mL - Impressions ITS Impressions Brain MRI 02/07/18 15:03 IMPRESSION: Very minimal small-vessel ischemic change bilaterally Left cerebellar old infarct No acute abnormality otherwise D/ / Calvin Walter / Calvin Walter Interpreting Provider: Calvin Walter - Attending Attestation Patient is seen and examined independently. Patient feels better but still have dizziness, position changes make her dizzy worse. Denies chest pain shortness of breath. Patient is alert, oriented 3, loss clear, heart rate is regular, but abdominal soft no tenderness . No edema. Case discussed with physician legislative assistant, I agree with H&P.
[2018-02-07] MEDS ORDERED: Ondansetron 4 MG/2 ML VIAL IVP PRN (16:43)
[2018-02-07 17:22] LABS: Thyroid Stimulating Hormone 1.521 mcIU/mL (0.340-5.600)
[2018-02-07] MEDS: predniSONE 10 MG TABLET PO SCH (17:36)
[2018-02-07] MEDS: levoFLOXacin 500 MG TABLET PO SCH (17:36)
[2018-02-07 19:10] LABS: Adenovirus Not Detected (Not Detect); Coronavirus 229E Not Detected (Not Detect); Coronavirus HKU1 Not Detected (Not Detect); Coronavirus NL63 Not Detected (Not Detect); Coronavirus OC43 Not Detected (Not Detect); Human Metapneumovirus Not Detected (Not Detect); Human Rhinovirus/Enterovirus Not Detected (Not Detect)
[2018-02-07 19:11] LABS: Bordetella Pertussis Not Detected (Not Detect); Chlamydophila pneumoniae Not Detected (Not Detect); Influenza A Subtype 2009 H1 Not Detected (Not Detect); Influenza A Untypeable Not Detected (Not Detect); Influenza B ***DETECTED*** (Not Detect); Mycoplasma pneumoniae Not Detected (Not Detect); Parainfluenza Virus 1 Not Detected (Not Detect); Parainfluenza Virus 2 Not Detected (Not Detect); Parainfluenza Virus 3 Not Detected (Not Detect); Parainfluenza Virus 4 Not Detected (Not Detect); Respiratory Syncytial Virus Not Detected (Not Detect)
[2018-02-07] MEDS: Ipratropium/Albuterol Neb 3 ML IH SCH (21:05)
[2018-02-08] MEDS: Ipratropium/Albuterol Neb 3 ML IH SCH ×4 (04:49→19:49)
[2018-02-08 04:59] LABS: Basophils % 0.5 %; Hematocrit 40.2 % (37.5-50.1); Immature Granulocytes % 5.3 % (0-4); Lymphocytes # 0.8 K/mcL (0.6-4.6); Lymphocytes % 19.6 %; Mean Corpuscular HGB Conc 32.1 g/dL (31.6-35.5); Mean Corpuscular Hemoglobin 31.2 pg (28.0-33.3); Mean Corpuscular Volume 97.1 fL (83.0-100.0); Mean Platelet Volume 10.9 fL (9.4-12.4); Monocytes # 0.4 K/mcL (0.0-1.3); Monocytes % 9.3 %; Neutrophils # 2.7 K/mcL (1.6-8.9); Platelet Count 190 K/mcL (140-400); Red Blood Count 4.14 M/mcL (4.19-5.50); Red Cell Distribution Width 13.7 % (11.5-14.5); Segmented Neutrophils % 65.3 %
[2018-02-08 05:18] LABS: Hemoglobin 12.9 g/dL (12.9-16.9)
[2018-02-08 05:20] LABS: Alanine Aminotransferase 15 Units/L (7-52); Albumin 3.1 g/dL (3.5-5.7); Albumin/Globulin Ratio 1.2 (1.1-2.2); Alkaline Phosphatase 53 Units/L (34-104); Aspartate Amino Transferase 31 Units/L (13-39); BUN/Creatinine Ratio 12 (6-26); Bilirubin,Total 0.4 mg/dL (0.3-1.0); Blood Urea Nitrogen 15 mg/dL (8-23); Calcium 8.5 mg/dL (8.6-10.3); Carbon Dioxide 24 mEq/L (23-29); Chloride 106 mEq/L (98-107); Chol/HDL Ratio 7.8 (0-4.9); Cholesterol 132 mg/dL (< 200); Globulin 2.6 g/dL (2.4-3.5); Glucose 108 mg/dL (70-105); HDL Cholesterol 17 mg/dL (40-59); LDL Cholesterol,Calculated 91 mg/dL (0-99); Magnesium 2.1 mg/dL (1.6-2.6); Osmolality,Calculated 285 (280-300); Potassium 4.1 mEq/L (3.5-5.1); Sodium 137 mEq/L (136-145); Total Protein 5.7 g/dL (6.4-8.9); Triglycerides 119 mg/dL (< 150); eGFR For African Americans > 60 (> 60); eGFR For Non-African Americans 54 (> 60)
[2018-02-08 05:22] LABS: Platelet Estimate Normal (Normal)
[2018-02-08] MEDS: 0.9 % Sodium Chloride 1,000 ML IVC SCH ×2 (06:27→16:15)
[2018-02-08] MEDS: predniSONE 10 MG TABLET PO SCH ×2 (08:00→16:15)
[2018-02-08] MEDS: Cholecalciferol (D-3) 1,000 UNIT TABLET PO SCH (08:00)
[2018-02-08] MEDS: levoFLOXacin 500 MG TABLET PO SCH (08:00)
[2018-02-08] MEDS: Cyanocobalamin (B-12) 1,000 MCG TABLET PO SCH (08:00)
[2018-02-08] MEDS: Fenofibrate 54 MG TABLET PO SCH (08:00)
[2018-02-08] MEDS ORDERED: Fluticasone Propionate Nasal 50 MCG/SPRAY BOTTLE NS SCH (09:00)
[2018-02-08] MEDS ORDERED: Aspirin Enteric Coated 81 MG Tablet PO SCH (09:00)
[2018-02-08] MEDS ORDERED: GuaiFENesin/Codeine Oral Soln 5 ML UDC PO PRN (09:18)
[2018-02-08] MEDS: Loratadine 10 MG TABLET PO SCH (10:34)
[2018-02-08] MEDS: Fluticasone Propionate Nasal 50 MCG/SPRAY BOTTLE NS SCH (10:34)
--- NOTE | 2018-02-08 14:26 | Neurology - Consult Note ---
Date of Encounter: 02/08/18 Time of Encounter: 14:21 Assessment and Plan (1) Labyrinthitis, acute viral Current Visit: Yes Status: Acute Based on this patient's history and neurologic examination, it seems that we are dealing with likely viral labyrinthitis. Symptoms are only present upon movement which is classic for labyrinthine presentation. He has tested positive for influenza type B. His neurologic examination and clinical history lack other bulbar findings. I am not convinced that the old cerebellar infarct is playing a role here. Unfortunately however he does have stroke risk factors. He is now back to his baseline. Going forward I would simply recommend symptomatic management of his vertigo. I would also recommend switching from aspirin to Plavix, which may have some advantage over posterior fossa events. Otherwise stroke management of her stroke risk factors which include hyperlipidemia and hypertension is paramount. I will reevaluate him at your request. Qualifiers: Laterality: unspecified laterality Qualified Code(s): H83.09 - Labyrinthitis, unspecified ear History of Present Illness HPI: Mr. Mccarty is a 77 year old male who was seen for neurologic consultation secondary to vertigo. He recalls the night before admission experiencing symptoms of "spinning" particularly when lying down in bed and moving. The symptoms persisted into the next day. He denied any numbness tingling or weakness of the face arms or legs. Denied visual changes, denied headache or speech difficulty. He has had symptoms of upper respiratory infection over the last few weeks and has tested positive for influenza type B. He has also had an MRI scan of the brain which reveals evidence of an old infarct in the left cerebellum. However this is unrelated to the factors leading up to this admission. The MRA scan of the brain did reveal severe narrowing at the origins of the vertebral arteries bilaterally. He does not ever recall experiencing an acute episode consisting of intense headache and ataxia of the left upper and or the left lower extremities. However his symptoms of vertigo are improved since admission. He is been up walking around today and has not been experiencing dizziness. He does have stroke risk factors including hypertension as well as hyperlipidemia and has been taking an aspirin daily for 30 years he states. Past Med Surg Social Fam HX - Past Medical History Medical history: arthritis, asthma, COPD, coronary artery disease, GERD, hyperlipidemia, hypertension, TIA Psychiatric history: no psych history - Past Surgical History Surgical History: angioplasty/stent, orthopedic, other - Social History Smoking Status: Former smoker Packs per day: 1 PPD - Reports quitting 45 years ago Smokeless Tobacco Status: No Alcohol use: none Drug use: none - Family History Father Race: Family Member Ethnicity: Non- Living Status: Age at : 92 Cause of : Leukemia Hx Family Cancer: Yes (Leukemia) Mother Race: Family Member Ethnicity: Non- Living Status: Age at : 89 Cause of : Cancer Hx Family Cancer: Yes Hx Family Neuromuscular Disorders: Yes (Parkinson's disease) Hx Family Neurologic Disorders: Yes (TIAs) Brother Race: Family Member Ethnicity: Non- Living Status: Still Living Hx Family Cardiac Disorders: Yes (HD) Hx Family GI Disorders: Yes (GERD) Sister Race: Family Member Ethnicity: Non- Living Status: Age at : 69 Cause of : Choked on food Hx Family Cardiac Disorders: Yes (CVA) Hx Family Respiratory Disorders: Yes (Emphysema) Hx Family Cancer: Yes (Colon) Hx Family Neurologic Disorders: Yes (CVA) Medications and Allergies Aspirin [Lo-Dose Aspirin EC] 81 mg PO DAILY 10/10/16 [History] Clopidogrel [Plavix] 75 mg PO DAILY 10/10/16 [History] Metoprolol [Lopressor] 25 mg PO BID 10/10/16 [History] Triamterene/HCTZ 37.5/25mg [Dyazide] 1 each PO DAILY 10/10/16 [History] Cholecalciferol (D-3) [Vitamin D] 2,000 unit PO DAILY 06/06/17 [History] Cyanocobalamin (Vitamin B-12) [Vitamin B12] 1,000 mcg PO DAILY 06/06/17 [History ] Fenofibrate 160 mg PO DAILY 06/06/17 [History] Pantoprazole Sodium [Protonix] 40 mg PO DAILY 06/06/17 [History] Pravastatin Sodium [Pravachol] 40 mg PO DAILY 06/06/17 [History] Nitroglycerin 0.4 mg SL Q5MIN PRN #30 06/07/17 [Rx] Fluticasone Propionate Nasal [Flonase] 1 - 2 spr NS DAILY 02/07/18 [History] levoFLOXacin [Levofloxacin] 500 mg PO DAILY 02/07/18 [History] 3 Allergy/AdvReac Type Severity Reaction Status Date / Time aspirin AdvReac See Verified 02/07/18 15:03 Comments All Systems: The remainder of the systems were reviewed and are negative Review of Systems: 10 point review of systems is consistent with a history of present illness and otherwise negative. Physical Examination - Vital Signs Vital Signs: Initial Vital Signs Temp Pulse Resp BP Pulse Ox 97.4 F L 67 18 123/75 96 02/07/18 11:05 02/07/18 11:05 02/07/18 11:05 02/07/18 11:05 02/07/18 11:05 - Neurologic Detailed motor examination: full strength in all major muscle groups Motor examination - right side: 03/14: deltoids, biceps, triceps, wrist flexion, wrist extension, tablet machine operator, hip flexors, tibialis Anterior, quadriceps, toe extension (EHL), plantarflexion Motor examination - left side: 03/14: deltoids, biceps, triceps, wrist flexion, wrist extension, hip flexors, tablet machine operator, quadriceps, tibialis Anterior, toe extension (EHL), plantarflexion Mental Status Examination: awake, alert, oriented to person, oriented to place, oriented to time, follows commands appropriately, answers questions appropriately, no agnosia, no aphasia, no aproxia Cranial nerve examination: PERRL, EOMI, visual barron intact, corneal reflexes brisk symmetrically, sensory to face intact, mastication intact, no facial asymmetry is present, no dysarthria, hearing is intact symmetrically (No nystagmus is identified.), soft palate elevates bilaterally upon phonation, gag reflex intact, flexes SCM and trapezius muscles symmetrically with full power, tongue protrudes midline, no atrophy or facial fasiculations present Cerebellar examination: no dysmetria, performs finger to nose and heel to koroma symmetrically without ataxia, no gait ataxia, no truncal ataxia, no difficulty with rapid alternating movements Results - Laboratory Findings CBC and BMP: 02/08/18 03:26 02/08/18 03:26 Abnormal lab findings: Abnormal lab results WBC 4.2 K/mcL (4.3-11.1) L 02/08/18 03:26 RBC 4.14 M/mcL (4.19-5.50) L 02/08/18 03:26 Immature Gran % 5.3 % (0-4) H 02/08/18 03:26 Band Neutrophils % 18.0 % (0-4) H 02/07/18 11:14 Metamyelocytes % 6.0 % (0) H 02/07/18 11:14 Reactive Lymphocytes Present (Not Present) A 02/07/18 11:14 Est GFR (Non-Af Amer) 54 (> 60) L 02/08/18 03:26 Glucose 108 mg/dL (70-105) H 02/08/18 03:26 Calcium 8.5 mg/dL (8.6-10.3) L 02/08/18 03:26 Serum Total Protein 5.7 g/dL (6.4-8.9) L 02/08/18 03:26 Albumin 3.1 g/dL (3.5-5.7) L 02/08/18 03:26 HDL Cholesterol 17 mg/dL (40-59) L 02/08/18 03:26 Cholesterol/HDL Ratio 7.8 (0-4.9) H 02/08/18 03:26 Influenza Type B (PCR) DETECTED (Not Detect) A 02/07/18 17:45 Consult Discharge Plan - Plan Referrals: Hong Levy MD [Primary Care Provider] -
--- NOTE | 2018-02-08 15:03 | Internal Med Progress Note ---
Date of Encounter: 02/08/18 Time of Encounter: 09:00 - Assessment and plan (1) Influenza B Current Visit: Yes Status: Acute Assessment and plan: Respiratory infectious patient positive for influenza B. Patient is out of the window for treatment with Tamiflu. Likely cause of patient's dizziness and weakness over the last 2 weeks. Onset of symptoms 2 weeks ago. He reports nasal congestion, rhinorrhea, frequent, hacking productive cough. Patient has had no relief from cough for approximately 2 weeks. He was given guaifenesin with codeine, which seemed to help. We will continue. Continue supportive treatment Continue Claritin and Flonase. (2) DVT prophylaxis Current Visit: Yes Status: Acute Assessment and plan: Patient is ambulatory. JOSÉ MIGUEL hose were ordered. (3) Dizziness Current Visit: Yes Status: Acute Assessment and plan: Symptoms of dizziness and weakness coincide with onset of URI, flu symptoms. Patient had an LHC in May, that showed double vessel coronary artery disease, CT of the proximal RCA. LV was normal with EF of 65%. At that time patient has successful PTCA/DORA placement in the proximal LAD. There are no echocardiogram, carotid Doppler results available. Brain MRI shows very minimal small vessel ischemic to change bilaterally, old left cerebellar infarct, no other acute abnormality. CTA neck shows no acute intracranial hemorrhage, chronic left cerebellar infarct unchanged, mild diffuse volume loss progressed. No evidence of carotid arter flow-limiting stenosis in the neck. Mild-moderate narrowing involves both intracranial internal carotid arteries bilaterally, no proximal cerebral artery occlusion. Meclizine 25 mg by mouth Continue computer engineer for safety and falls Symptomatically treat influenza symptoms (4) Labyrinthitis, acute viral Current Visit: Yes Status: Acute Assessment and plan: Patient has been evaluated by neurology for labyrinthitis/dizziness. Onset coincided with onset of influenza B/URI symptoms. Neurology agrees to treat symptomatically, likely viral labyrinthitis. Continue to treat symptomatically. Patient is receiving IV fluids, monitoring for falls and safety, meclizine. He does recommend switching from aspirin to Plavix, which could have no advantage of her posterior fossa events. Plan as above. Qualifiers: Laterality: unspecified laterality Qualified Code(s): H83.09 - Labyrinthitis, unspecified ear (5) CAD (coronary artery disease) Current Visit: Yes Status: Chronic Assessment and plan: Chronic. Patient denies chest pain. Continue aspirin, Plavix, TriCor, beta ce, Dyazide. Qualifiers: Coronary Disease-Associated Artery/Lesion type: [place] artery [place] vs. transplanted heart: [place] heart Associated angina: without angina Qualified Code(s): I25.10 - Atherosclerotic heart disease of [place] coronary artery without angina pectoris (6) COPD (chronic obstructive pulmonary disease) Current Visit: Yes Status: Chronic Assessment and plan: Mild acute exacerbation of COPD. Lungs are clear, patient is requiring supplemental oxygen. Continue treatment as above for flu , Robitussin with codeine 10ml every 6 hours as needed Prednisone 10 mg twice daily with meals Claritin 10 mg by mouth daily Flonase one spray each nostril daily Oxygen as needed to maintain sats greater than 92% Duo neb treatments Qualifiers: COPD type: emphysema Qualified Code(s): J43.9 - Emphysema, unspecified (7) GERD (gastroesophageal reflux disease) Current Visit: Yes Status: Chronic Assessment and plan: Chronic. Continue omeprazole. Qualifiers: Esophagitis presence: esophagitis presence not specified Qualified Code(s) : K21.9 - Gastro-esophageal reflux disease without esophagitis (8) HLD (hyperlipidemia) Current Visit: Yes Status: Chronic Assessment and plan: Chronic. Continue TriCor and Zocor. Qualifiers: Hyperlipidemia type: pure hypercholesterolemia Qualified Code(s): E78.00 - Pure hypercholesterolemia, unspecified; E78.0 - Pure hypercholesterolemia (9) HTN (hypertension) Current Visit: Yes Status: Chronic Assessment and plan: Chronic. Continue home medications. Qualifiers: Hypertension type: essential hypertension Qualified Code(s): I10 - Essential (primary) hypertension (10) Vertebral artery stenosis Current Visit: Yes Status: Chronic Assessment and plan: Chronic. Noted per neck CTA. Continue follow with primary care. Angiography CT 02/07/18 11:53 IMPRESSION: No acute intracranial hemorrhage or mass effect. Chronic left cerebellar infarct unchanged. Mild diffuse volume loss progressed. Moderate- severe narrowing of both vertebral artery origins. No evidence of carotid artery flow-limiting stenosis in the neck. Mild-moderate narrowing involves both intracranial internal carotid arteries bilaterally. No proximal cerebral artery occlusion. D/ / Ward Zurita MD / Ward Zurita MD Interpreting Provider: Ward Zurita MD Neck CTA 02/07/18 11:53 IMPRESSION: No acute intracranial hemorrhage or mass effect. Chronic left cerebellar infarct unchanged. Mild diffuse volume loss progressed. Moderate- severe narrowing of both vertebral artery origins. No evidence of carotid artery flow-limiting stenosis in the neck. Mild-moderate narrowing involves both intracranial internal carotid arteries bilaterally. No proximal cerebral artery occlusion. D/ / Ward Zurita MD / Ward Zurita MD Interpreting Provider: Ward Zurita MD Brain MRI 02/07/18 15:03 IMPRESSION: Very minimal small-vessel ischemic change bilaterally Left cerebellar old infarct No acute abnormality otherwise D/ / Calvin Walter / Calvin Walter Interpreting Provider: Calvin Walter Qualifiers: Laterality: bilateral Qualified Code(s): I65.03 - Occlusion and stenosis of bilateral vertebral arteries - Time Spent With Patient less than 15 minutes - Subjective Interval history: Pt was seen and assessed the bedside at 9 AM. is at bedside. She reports that they have had identical symptoms last 2 weeks, weakness, fatigue, productive cough. He reports positive chills, subjective fevers., Nasal congestion, clear rhinorrhea. Patient reports the cough is so significant that is impeding his sleep, and affecting his daily activities. He feels weak and dizzy for the last 2 weeks. He denies headache or blurred vision, chest pain, no shortness of breath, no abdominal pain, no vomiting, diarrhea, nausea. Patient has no peripheral edema. - Constitutional Vitals: Temp Pulse Resp BP Pulse Ox 97.9 F 73 16 106/58 95 02/08/18 11:32 02/08/18 11:32 02/08/18 11:32 02/08/18 11:32 02/08/18 11:32 General appearance: Present: cooperative, mild distress (Respiratory/cough), A& O X 3, pleasant, obese, answers questions appropriately - Head Head exam: Present: atraumatic, normal inspection, normocephalic - Eye Eye exam: Present: conjuntiva pink, sclera anicteric - Neck Neck exam general surgery: Present: normal inspection, supple, trachea midline. Absent: lymphadenopathy, tenderness - Respiratory Respiratory exam: Present: CTAB. Absent: accessory muscle use, chest wall tenderness, rales, respiratory distress, rhonchi, wheezes - Cardiovascular Cardiovascular exam: Present: RRR, +S1, +S2. Absent: diastolic murmur, gallop, rubs, systolic murmur - GI/Abdominal GI/Abdominal exam: Present: normal bowel sounds, soft. Absent: distended, tenderness - Extremities Exam Extremities exam: Present: normal capillary refill, normal inspection, warm, radial pulses palpable and symmetrical. Absent: calf tenderness, cyanotic, pedal edema, tenderness - Neurological Exam Neurological exam: Present: alert, oriented X3, no focal deficits. Absent: facial droop, speech deficit - Skin Skin exam: Present: dry, intact, normal color, warm. Absent: rash Internal Medicine: Result - Labs CBC & Chem 7: 02/08/18 03:26 02/08/18 03:26 Labs: Short CBC 02/08/18 Range/Units 03:26 WBC 4.2 L (4.3-11.1) K/mcL Hgb 12.9 D (12.9-16.9) g/dL Hct 40.2 (37.5-50.1) % Plt Count 190 (140-400) K/mcL Neutrophils # 2.7 (1.6-8.9) K/mcL BMP 02/08/18 03:26 Sodium 137 Potassium 4.1 Chloride 106 Carbon Dioxide 24 BUN 15 Creatinine 1.29 Glucose 108 H Calcium 8.5 L Cardiac Enzymes 02/07/18 02/07/18 Range/Units 16:37 22:53 Troponin I < 0.03 < 0.03 (< 0.04) ng/mL Liver Function 02/08/18 Range/Units 03:26 Total Bilirubin 0.4 (0.3-1.0) mg/dL AST 31 (13-39) Units/L ALT 15 (7-52) Units/L Alkaline Phosphatase 53 (34-104) Units/L Albumin 3.1 L (3.5-5.7) g/dL - ABG Interpretation ABG results: PT/INR, D-dimer PT 11.3 Seconds (9.4-12.1) 02/07/18 11:14 - Impressions Impressions Brain MRI 02/07/18 15:03 IMPRESSION: Very minimal small-vessel ischemic change bilaterally Left cerebellar old infarct No acute abnormality otherwise D/ / Calvin Walter / Calvin Walter Interpreting Provider: Calvin Walter Consult Discharge Plan - Plan Referrals: Hong Levy MD [Primary Care Provider] -
[2018-02-09] MEDS: Ipratropium/Albuterol Neb 3 ML IH SCH ×4 (00:06→11:01)
[2018-02-09] MEDS: 0.9 % Sodium Chloride 1,000 ML IVC SCH (02:56)
[2018-02-09 07:32] LABS: Basophils % 0.4 %; Hematocrit 37.9 % (37.5-50.1); Hemoglobin 12.4 g/dL (12.9-16.9); Immature Platelets 4.8 % (1.1-6.1); Lymphocytes % 19.1 %; Mean Corpuscular HGB Conc 32.7 g/dL (31.6-35.5); Mean Corpuscular Hemoglobin 31.7 pg (28.0-33.3); Mean Corpuscular Volume 96.9 fL (83.0-100.0); Mean Platelet Volume 11.1 fL (9.4-12.4); Monocytes # 0.4 K/mcL (0.0-1.3); Neutrophils # 3.7 K/mcL (1.6-8.9); Platelet Count 206 K/mcL (140-400); Red Blood Count 3.91 M/mcL (4.19-5.50); Segmented Neutrophils % 70.5 %
[2018-02-09 07:54] LABS: Alanine Aminotransferase 13 Units/L (7-52); Albumin 3.1 g/dL (3.5-5.7); Albumin/Globulin Ratio 1.2 (1.1-2.2); Alkaline Phosphatase 60 Units/L (34-104); Aspartate Amino Transferase 23 Units/L (13-39); BUN/Creatinine Ratio 10 (6-26); Bilirubin,Total 0.3 mg/dL (0.3-1.0); Blood Urea Nitrogen 12 mg/dL (8-23); Calcium 8.6 mg/dL (8.6-10.3); Carbon Dioxide 22 mEq/L (23-29); Chloride 109 mEq/L (98-107); Globulin 2.5 g/dL (2.4-3.5); Glucose 155 mg/dL (70-105); Osmolality,Calculated 291 (280-300); Potassium 3.6 mEq/L (3.5-5.1); Sodium 139 mEq/L (136-145); Total Protein 5.6 g/dL (6.4-8.9); eGFR For African Americans > 60 (> 60); eGFR For Non-African Americans 57 (> 60)
[2018-02-09] MEDS: Fenofibrate 54 MG TABLET PO SCH (08:05)
[2018-02-09] MEDS: Cyanocobalamin (B-12) 1,000 MCG TABLET PO SCH (08:05)
[2018-02-09] MEDS: predniSONE 10 MG TABLET PO SCH (08:05)
[2018-02-09] MEDS: Cholecalciferol (D-3) 1,000 UNIT TABLET PO SCH (08:06)
[2018-02-09] MEDS: Loratadine 10 MG TABLET PO SCH (08:06)
[2018-02-09] MEDS: Fluticasone Propionate Nasal 50 MCG/SPRAY BOTTLE NS SCH (08:07)
[2018-02-09 10:35] VITALS: BP 120/82
--- NOTE | 2018-02-09 10:37 | Discharge Summary ---
Orders not resulted at time of discharge: Pending orders 02/08/18 03:26 A1C [Hgb A1C] AM 0400 02/10/18 04:00 Complete Blood Count [HEME] AM 0400 Comprehensive Metabolic Panel AM 0400 02/11/18 04:00 Complete Blood Count [HEME] AM 0400 Comprehensive Metabolic Panel AM 0400 Date of Encounter: 02/09/18 Time of Encounter: 09:30 - Discharge Diagnosis (1) Influenza B Priority: Primary Status: Acute Comments: Pt states that he is feeling better and is not requiring supplemental 02. Will discharge pt with Robitussin with codeine and prednisone. Pt already has flonase and claritin at home. He declined Tamiflu. (2) DVT prophylaxis Priority: Secondary Status: Acute Comments: JOSÉ MIGUEL dean ordered, pt has been ambulatory (3) Dizziness Priority: Secondary Status: Acute Comments: Symptoms of dizziness and weakness coincide with onset of URI, flu symptoms. Patient had an LHC in May, that showed double vessel coronary artery disease, CT of the proximal RCA. LV was normal with EF of 65%. At that time patient has successful PTCA/DORA placement in the proximal LAD. There are no echocardiogram, carotid Doppler results available. Brain MRI shows very minimal small vessel ischemic to change bilaterally, old left cerebellar infarct, no other acute abnormality. CTA neck shows no acute intracranial hemorrhage, chronic left cerebellar infarct unchanged, mild diffuse volume loss progressed. No evidence of carotid arter flow-limiting stenosis in the neck. Mild-moderate narrowing involves both intracranial internal carotid arteries bilaterally, no proximal cerebral artery occlusion. I spoke with Dr. Ayala, who offered to see pt in the office with the option for further referral to neurointerventional radiologist at [place], Dr. Sharma. states that she would rather go straight to [place] to save on copays. Will start referral process. Continue Meclizine 25mg po (4) Labyrinthitis, acute viral Priority: Secondary Status: Acute Comments: Most likely viral in the setting of Influenza B. Pt states that he is feeling better. Continue Plavix 75mg po daily Qualifiers: Laterality: unspecified laterality Qualified Code(s): H83.09 - Labyrinthitis, unspecified ear (5) CAD (coronary artery disease) Priority: Secondary Status: Chronic Comments: Denies chest pain. Continue ASA, Plavix, TriCor, BB, Dyazide. Qualifiers: Coronary Disease-Associated Artery/Lesion type: [place] artery [place] vs. transplanted heart: [place] heart Associated angina: without angina Qualified Code(s): I25.10 - Atherosclerotic heart disease of [place] coronary artery without angina pectoris (6) COPD (chronic obstructive pulmonary disease) Priority: Secondary Status: Chronic Comments: Mild acute exacerbation. Pt is feeling better. Lungs clear and diminished, ronchi heard in bases, clears withcough. Pt reports that cough has improved. No distress. Robitussin with codeine 10ml every 6 hours as needed. Claritin 10mg po daily Flonase 1 spray each nostril daily Qualifiers: COPD type: emphysema Emphysema type: unspecified Qualified Code(s): J43.9 - Emphysema, unspecified (7) GERD (gastroesophageal reflux disease) Priority: Secondary Status: Chronic Comments: Chronic. Continue home medicaitons. Qualifiers: Esophagitis presence: esophagitis presence not specified Qualified Code(s) : K21.9 - Gastro-esophageal reflux disease without esophagitis (8) HLD (hyperlipidemia) Priority: Secondary Status: Chronic Comments: Chronic. Continue TriCor and Zocor. Qualifiers: Hyperlipidemia type: pure hypercholesterolemia Qualified Code(s): E78.00 - Pure hypercholesterolemia, unspecified; E78.0 - Pure hypercholesterolemia (9) HTN (hypertension) Priority: Secondary Status: Chronic Comments: Chronic. Well controlled. Continue home medications. Qualifiers: Hypertension type: essential hypertension Qualified Code(s): I10 - Essential (primary) hypertension (10) Vertebral artery stenosis Priority: Secondary Status: Chronic Comments: Pt will follow with neurointerventional radiologist at [place] per pt's choice. Will start referral process. Qualifiers: Laterality: bilateral Qualified Code(s): I65.03 - Occlusion and stenosis of bilateral vertebral arteries Hospital course: Mr. Mccarty is a 77 year old male who presented to the ED with c/o 2 week history of dizziness, weakness, and URI symptoms.. Patient lives with his who has also had URI symptoms for the same amount of time. She became progressively worse and the preceding 18 hours before presentation to the emergency room. He reported that he became extremely dizzy with positional changes or changes in head movement. His symptoms are also worse when he was lying down. His chest x-ray was negative, EKG was normal sinus without any ST changes, neck CTA showed no acute intracranial hemorrhage, chronic left cerebellar infarct remains unchanged, mild diffuse volume loss has progressed. There is moderate to severe narrowing of both vertebral artery origins, no evidence of carotid artery flow limiting stenosis in the neck, there is mild to moderate narrowing involves both intracranial internal carotid arteries bilaterally. There is no proximal cerebral artery occlusion. He should also tested positive for influenza B. He reports constant, dry, hacking cough that has interfered with his daily life and sleep. He was treated symptomatically and declines Tamiflu. Patient has improved and will be sent home with prescriptions for codeine with guaifenesin, prednisone, Claritin, Flonase. Patient was evaluated by neurology who has recommended the patient switched to Plavix from aspirin. He will be sent home with a prescription for Plavix as well. I did speak with Dr. Cruz, vascular surgeon, regarding the neck CTA results. He offered to see the patient in the office and offer a referral to [facility], or states that they could send patient directly to [facility]. I discussed these options with patient and , they have opted to be sent to neuro interventional radiologist at [place], Dr. Antony Sharma, we are in the process of starting a referral today. Patient reports he feels significantly better. His physical exam is unremarkable. His labs and vital signs are stable and within normal limits. Patient is stable and appropriate for discharge. - Time Spent with Patient Total time spent providing and/or coordinating discharge services: Less than 30 minutes - Discharge Medications Prescriptions: GuaiFENesin/Codeine [ROBITUSSIN w/CODEINE] 10 ml PO Q6HR PRN 4 Days #120 ml PRN Reason: Cough Clopidogrel [Plavix] 75 mg PO DAILY #30 tablet predniSONE [PredniSONE] 10 mg PO BIDWM #6 tablet Home Medications: Metoprolol [Lopressor] 25 mg PO BID 10/10/16 [History] Triamterene/HCTZ 37.5/25mg [Dyazide] 1 each PO DAILY 10/10/16 [History] Cholecalciferol (D-3) [Vitamin D] 2,000 unit PO DAILY 06/06/17 [History] Cyanocobalamin (Vitamin B-12) [Vitamin B12] 1,000 mcg PO DAILY 06/06/17 [History ] Fenofibrate 160 mg PO DAILY 06/06/17 [History] Pantoprazole Sodium [Protonix] 40 mg PO DAILY 06/06/17 [History] Pravastatin Sodium [Pravachol] 40 mg PO DAILY 06/06/17 [History] Nitroglycerin 0.4 mg SL Q5MIN PRN #30 06/07/17 [Rx] Fluticasone Propionate Nasal [Flonase] 1 - 2 spr NS DAILY 02/07/18 [History] Clopidogrel [Plavix] 75 mg PO DAILY #30 tablet 02/09/18 [Rx] Fenofibrate [Tricor] 162 mg PO DAILY tablet 02/09/18 [Rx] GuaiFENesin/Codeine [ROBITUSSIN w/CODEINE] 10 ml PO Q6HR PRN 4 Days #120 ml 12/28 [Rx] Loratadine [Claritin] 10 mg PO DAILY tablet 02/09/18 [Rx] Simvastatin [Zocor] 20 mg PO DAILY tablet 02/09/18 [Rx] predniSONE [PredniSONE] 10 mg PO BIDWM #6 tablet 02/09/18 [Rx] Allergies/Adverse Reactions: 3 Allergy/AdvReac Type Severity Reaction Status Date / Time aspirin AdvReac See Verified 02/07/18 15:03 Comments Date of admission: 02/07/18 14:57 Primary care physician: Hong Levy MD Consults: 02/07/18 15:39 Consult to Occupational Therapy [CONS] Routine Comment: Evaluate, develop and implement POC Reason for Consult: Patient reports severe dizziness and episodes of near-falls w/ ambulation. please assess patient for ambulation strength , stability, safety, and possible home assistive/ rehabilitation needs for post-discharge planning. Does patient have active BEDREST order?: Yes Is patient medically & hemodynamically stable?: Yes Patient assessed for mobility or mobilized this visit?: No Consult to Information Technology Officer [CONS] Routine Reason for SW Consult: Please assess patient for possible home needs for post -discharge planning. 02/07/18 15:41 Consult to Physical Therapy [CONS] Routine Comment: Evaluate, develop and implement POC Reason for Consult: Patient reports severe dizziness and episodes of near-falls w/ ambulation. please assess patient for ambulation strength , stability, safety, and possible home assistive/ rehabilitation needs for post-discharge planning. Does patient have active BEDREST order?: Yes Is patient medically & hemodynamically stable?: Yes Patient assessed for mobility or mobilized this visit?: No Discharging clinician: Shelli Lewis Anticipated date of discharge: 02/09/18 - Constitutional Vitals: Temp Pulse Resp BP Pulse Ox 98.6 F 59 18 120/82 95 02/09/18 10:34 02/09/18 10:34 02/09/18 10:34 02/09/18 10:34 02/09/18 10:34 General appearance: Present: cooperative, mild distress (Respiratory/cough), A& O X 3, pleasant, obese, answers questions appropriately - Head Head exam: Present: atraumatic, normal inspection, normocephalic - Eye Eye exam: Present: PERRL, conjuntiva pink, sclera anicteric Pupils: Present: PERRL - Neck Neck exam general surgery: Present: supple, trachea midline. Absent: lymphadenopathy - Respiratory Respiratory exam: Present: CTAB. Absent: accessory muscle use, rales, respiratory distress, rhonchi, wheezes - Cardiovascular Cardiovascular exam: Present: RRR, +S1, +S2. Absent: diastolic murmur, gallop, rubs, systolic murmur - GI/Abdominal GI/Abdominal exam: Present: normal bowel sounds, soft. Absent: distended, hepatomegaly, tenderness - Extremities Exam Extremities exam: Present: normal capillary refill, normal inspection, warm, radial pulses palpable and symmetrical. Absent: calf tenderness, cyanotic, pedal edema - Neurological Exam Neurological exam: Present: alert, oriented X3, no focal deficits. Absent: facial droop, speech deficit - Skin Skin exam: Present: dry, intact, normal color, warm. Absent: rash - Patient Status Disposition: Home, Self-Care Condition: Good Functional capacity at discharge: independent ambulation Overall status at discharge: patient is progressing back to baseline - Discharge Instructions Instructions: Prednisone (By mouth), Clopidogrel (By mouth), Narcotic- Antitussive/Expectorant (By mouth) Follow Up With: Hong Levy MD [Primary Care Provider] - 02/18/18 11:30 am Additional Instructions: Take your medications as directed. Return to the ER as needed for any other problems or concerns. Return to your normal diet and medications Follow up with your PCP in the next 7-10 days - Diet and Activity Activity: increase activity as tolerated Diet: advance to your usual diet
[2018-02-09 11:02] LABS: Estimated Average Glucose 128 mg/dl; Hemoglobin A1C 6.1 %
--- NOTE | 2018-02-09 12:30 | Electrocardiograph Report ---
[place] [id number] Test Date: 2018-02-07 Pat Name: Link Mccarty Department: 103 Room: 3B13 Gender: M Installer Soft Top: AM : 1940 Requested By: Christofer Dai Order Number: [id number] Reading MD: Tacho Aguilera Measurements Intervals [place] Rate: 66 P: 6 NV: 153 QRS: -18 QRSD: 92 T: 7 QT: 397 QTc: 410 Interpretive Statements SINUS RHYTHM MODERATE VOLTAGE CRITERIA FOR LVH, CONSIDER NORMAL VARIANT Electronically Signed On 02-09-2018 12:29:16 EDT by Tacho Aguilera
== END 2018-02-09 12:25 | disposition home or self-care (01) ==
LOC: EMEROO 10:58 → 3BNU 10:58
PROVIDERS: ADMIT Hospitalist; ATTEND Registered Nurse